=== PATIENT | female | born 1970 | race African-American/Black ===

== ENCOUNTER 2016-11-01 10:43 | Emergency (ER) | payer BC, OTHER ==
[~2016-11-01] VITALS: Ht 160 cm; Wt 76.2 kg
[2016-11-01 11:03] VITALS: BP 133/91
[2016-11-01] MEDS ORDERED: KETOROLAC TROMETH 60MG/2ML VIAL IM ONE (11:45)
== END 2016-11-01 12:33 | disposition home or self-care (01) ==
LOC: ER 10:54
DX: G89.11 Acute pain due to trauma (principal); M54.9 Dorsalgia, unspecified; M47.892 Other spondylosis, cervical region; V49.9XXA Car occupant (driver) (passenger) injured in unspecified traffic accident, initial encounter; Y93.89 Activity, other specified; Y92.89 Other specified places as the place of occurrence of the external cause; Y99.8 Other external cause status
CPT/HCPCS: 72125; 96372; 99284; J1885

== ENCOUNTER 2016-12-28 16:38 | Emergency (ER) | payer BC ==
[~2016-12-28] VITALS: Ht 160 cm; Wt 77.1 kg
[2016-12-28 17:10] VITALS: BP 142/94
[2016-12-28] MEDS ORDERED: CYCLOBENZAPRINE HCL 10 MG TAB PO ONE (19:45)
[2016-12-28] MEDS ORDERED: IBUPROFEN 600 MG TAB PO ONE (19:45)
== END 2016-12-28 20:27 | disposition home or self-care (01) ==
LOC: ER 16:38
DX: S16.1XXA Strain of muscle, fascia and tendon at neck level, initial encounter (principal); S39.012A Strain of muscle, fascia and tendon of lower back, initial encounter; M79.605 Pain in left leg; M79.604 Pain in right leg; M79.1 Myalgia; V49.49XA Driver injured in collision with other motor vehicles in traffic accident, initial encounter; Y93.89 Activity, other specified; Y99.8 Other external cause status; Y92.410 Unspecified street and highway as the place of occurrence of the external cause